=== PATIENT | female | born 2005 | race Caucasian/White ===

== ENCOUNTER 2024-08-22 20:51 | Emergency (ER) | payer MEDICAID ==
[~2024-08-22] VITALS: Ht 162.6 cm; Wt 95.3 kg
[2024-08-22 21:26] VITALS: BP_SYST 118; PULSE 66; RESP 18; TEMP 98.1; O2SAT 97
[2024-08-22 22:21] LABS: BILIRUBIN,URINE NEGATIVE (NEGATIVE); BLOOD, URINE NEGATIVE (NEGATIVE); CLARITY/URINE CLEAR (CLEAR); COLOR,URINE YELLOW (YELLOW); GLUCOSE,URINE NEGATIVE (NEGATIVE); KETONES,URINE 1+ (NEGATIVE); LEUKOCYTE ESTERASE ,URINE NEGATIVE (NEGATIVE); NITRITE, URINE NEGATIVE (NEGATIVE); PH,URINE 6.5 (5.0-8.0); PROTEIN URINE NEGATIVE (NEGATIVE); UROBILINOGEN,URINE 0.2 (0.2-1.0)
[2024-08-22] MEDS: KETOROLAC TROMETHAMINE 60 MG/2 ML VIAL IM ONE (22:39)
[2024-08-22 23:45] LABS: BASOPHILS % (AUTO) 0.2 % (0.0-2.0); EOSINOPHILS # (AUTO) 0.1 K/uL (0.0-0.4); EOSINOPHILS % (AUTO) 1.2 % (0.0-4.0); HEMATOCRIT 40.7 % (36-48); HEMOGLOBIN 14.4 g/dL (12.0-16.0); LYMPHOCYTES # (AUTO) 3.2 K/uL (1.0-5.5); LYMPHOCYTES % (AUTO) 29.8 % (20.5-51.5); MEAN CORPUSCULAR HEMOGLOBIN 32 pg (27-31); MEAN CORPUSCULAR HGB CONC 35 % (32-36); MEAN CORPUSCULAR VOLUME 89 fL (79.0-98.0); MONOCYTES # (AUTO) 0.5 K/uL (0.0-1.0); MONOCYTES % (AUTO) 4.9 % (1.7-9.3); NEUTROPHILS # (AUTO) 6.9 K/uL (1.8-7.7); NEUTROPHILS % (AUTO) 63.9 % (40.0-70.0); PLATELET COUNT (AUTO) 347 K/uL (130-430); RED BLOOD CELL COUNT(AUTO) 4.58 MIL/uL (4.2-6.2); RED CELL DISTRIBUTION WIDTH 12.9 % (9.0-15.0); WHITE BLOOD COUNT (AUTO) 10.9 K/uL (4.5-11.0)
[2024-08-23 00:02] LABS: CALCIUM 9.5 mg/dL (8.4-11.0); CREATININE 0.84 mg/dL (0.55-1.30); POTASSIUM 3.9 mmol/L (3.5-5.1)
[2024-08-23] MEDS: HYDROcodone/ACETAMIN 5-325 MG TAB (NORCO/ VICODIN) PO ONE (00:26)
[2024-08-23] MEDS ORDERED: TAMS-11 PO (00:36)
[2024-08-23] MEDS ORDERED: IBUP-1969 PO (00:36)
[2024-08-23] MEDS ORDERED: HYDR-3917 PO (00:36)
[2024-08-23 00:50] VITALS: BP_SYST 118; PULSE 66; RESP 18; TEMP 98.1; O2SAT 97
== END 2024-08-23 00:50 | disposition home or self-care (01) ==
LOC: SED 20:51
DX: N23 Unspecified renal colic (principal); R20.8 Other disturbances of skin sensation; Z79.899 Other long term (current) drug therapy; Z79.2 Long term (current) use of antibiotics
CPT/HCPCS: 99285; 76770; 80048; 81001; 85025; 36415; 81025; 96372; 81003; J1885